=== PATIENT | male | born 1980 | race Caucasian/White ===

== ENCOUNTER 2022-08-25 18:32 | Emergency (ER) | payer MEDICAID, SELFPAY ==
[2022-08-25 18:34] VITALS: BP 115/93; PULSE 87; RESP 19; TEMP 36.6; O2SAT 99; BMI 28.8
--- NOTE | 2022-08-25 20:04 | EDS_ITS ---
HPI HPI - GI History of Present Illness Chief Complaint: Abd Pain Narrative Narrative: 41-year-old male with history of IBS and cannabinoid hyperemesis syndrome presenting with nausea, vomiting, epigastric pain. He states this started about 3 in the morning this morning. He had nausea and vomiting all day. He states he has tried using hot showers and had the hot showers epigastric region which was helping him however he ran out of hot water and went to his grandmother's house to use her shower. He also states that he forgot his capsaicin cream which usually rubs on his epigastric region when he has nausea and vomiting. Denies fevers. Denies constipation diarrhea. PFSH PFSH Medical History no medical history Home Medications ondansetron 4 mg disintegrating tablet 4 mg PO Q8H PRN PRN Nausea #20 tabs 08/25/22 [Rx Last Taken Unknown] Allergy/AdvReac Type Severity Reaction Status Date / Time No Known Allergies Allergy Verified 08/25/22 18:34 Social History Smoking Status: Unknown if ever smoked ROS ROS ED Constitutional Constitutional ED: Denies chills, fever(s) or sweats Eyes Eyes: Denies blurry vision or change in vision ENT ENT ED: Denies ear pain or sore throat Cardiovascular Cardiovascular: Denies chest pain, palpitations or racing heartbeat Respiratory/Chest Respiratory/Chest: Denies cough, dyspnea or sputum Gastrointestinal Gastrointestinal: Reports abdominal pain, nausea and vomiting; Denies constipation or diarrhea Genitourinary Genitourinary ED: Denies dysuria, hematuria or urinary frequency Musculoskeletal Musculoskeletal: Denies arthralgias, myalgias or neck pain Integumentary Denies abscess, Abrasions or rash Neurologic Neurologic: Denies headache(s), paresthesias or weakness Psychiatric Psychiatric: Denies anxiety, depression, suicidal ideation or suicidal thoughts Endocrine Endocrinology: Denies polydipsia or polyuria EXAM Physical Exam Const Vital Signs: 08/25/22 18:34 08/25/22 20:33 08/25/22 21:54 Temperature 97.9 F Temperature Source Temporal Pulse Rate 87 65 67 Respiratory Rate 19 H 15 15 Blood Pressure 115/93 H 140/66 H 101/56 L Blood Pressure Mean 100 90 71 Pulse Ox 99 99 99 Oxygen Delivery Method Room Air Room Air Room Air 08/25/22 22:24 Temperature Temperature Source Pulse Rate 75 Respiratory Rate 15 Blood Pressure 105/88 H Blood Pressure Mean 93 Pulse Ox 99 Oxygen Delivery Method Room Air Positive well nourished and obese General Appearance ED: Negative for pallor Nutritional Appearance: obese HEENT Reports dry mucous membranes normocephalic Mouth ED: Yes dry mucous membranes Mouth: dry mucous membranes Eyes PERRL and EOMs intact bilaterally General Eye ED: Negative for pale conjunctiva or scleral icterus Resp normal respiratory effort Effort and Inspection: Negative for respiratory distress Cardio regular rate and regular rhythm GI GI Narrative: Diffuse tenderness of the abdomen without rebound or guarding. There is more tenderness in the epigastric region. Negative Rothman sign. Neuro CN's II-XII intact bilaterally Sensorium / Orientation: alert Psych mental status grossly normal Skin General Skin Exam: Negative for jaundice or pallor MDM MDM MDM Narrative Medical decision making narrative: Patient presenting with nausea, vomiting, abdominal pain. Differential includes but is not limited to GERD, gastritis, peptic ulcer disease, acute cholecystitis, acute cholelithiasis, appendicitis, diverticulitis, pancreatitis, small bowel obstruction, food poisoning, cannabinoid hyperemesis syndrome, cyclic vomiting syndrome. CBC to assess white blood cell count, hemoglobin, platelets, differential. CMP to assess liver function, renal function, glucose, anion gap, electrolytes. Urinalysis to assess for UTI. Patient ordered capsaicin cream to rub on his epigastrium. He was ordered morphine and Zofran as well as a liter of normal saline. CBC showed a normal white blood cell count 10.4. Hemoglobin 14, hematocrit 41.4, platelets 255. Renal function and electrolytes within normal limits. LFTs are normal. Lipase is negative. Urinalysis negative for infection. Patient still having pain and nausea after treatment and was given Reglan and 4 mg of morphine. He was taken to CT and a CT abdomen pelvis was negative for acute findings. It does show hepatosplenomegaly. On reevaluation at 11:30 PM the patient is resting comfortably and asleep. I counseled him on his negative work-up and he is stable for discharge home. I believe his symptoms are most consistent with a cannabinoid hyperemesis syndrome. He will be given Zofran and his prescription will be filled here at the hospital for going home. Return precautions discussed. Impression: 1. Cannabinoid hyperemesis syndrome 2. Abdominal pain Lab Data Labs: Laboratory Results - last 24 hr 08/25/22 08/25/22 08/25/22 19:20 19:20 20:50 WBC Cancelled 10.4 Corrected WBC Cancelled RBC Cancelled 4.70 Hgb Cancelled 14.0 Hct Cancelled 41.4 MCV Cancelled 88.1 MCH Cancelled 29.8 MCHC Cancelled 33.8 RDW Std Deviation Cancelled 39.6 RDW Coeff of Roldan Cancelled 12.2 Plt Count Cancelled 255 MPV Cancelled 8.8 Immature Gran % (Auto) Cancelled 0.400 Neut % (Auto) Cancelled 92.0 H Lymph % (Auto) Cancelled 6.0 L [place] % (Auto) Cancelled 1.5 Eos % (Auto) Cancelled 0.0 Baso % (Auto) Cancelled 0.1 Absolute Neuts (auto) Cancelled 9.6 H Absolute Lymphs (auto) Cancelled 0.63 L Total Counted Cancelled Neutrophils % (Manual) Cancelled Band Neutrophils % Cancelled Lymphocytes % (Manual) Cancelled Monocytes % (Manual) Cancelled Eosinophils % (Manual) Cancelled Basophils % (Manual) Cancelled Metamyelocytes % Cancelled Myelocytes % Cancelled Promyelocytes % Cancelled Blast Cells % Cancelled Plasma Cell % (Manual) Cancelled Other Cells % Cancelled Nucleated RBC % Cancelled 0 Nucleated RBCs/100 WBC Cancelled Differential Comment Cancelled Diff Path Review Cancelled Hypersegmented Neuts Cancelled Atypical Lymphocytes Cancelled Reactive Lymphocytes Cancelled Smudge Cells Cancelled Toxic Granulation Cancelled Toxic Vacuolation Cancelled Dohle Bodies Cancelled Aliya Rods Cancelled Platelet Estimate Cancelled Plt Morphology Comment Cancelled RBC Morphology Cancelled Polychromasia Cancelled Hypochromasia Cancelled Poikilocytosis Cancelled Basophilic Stippling Cancelled Anisocytosis Cancelled Microcytosis Cancelled Macrocytosis Cancelled Spherocytes Cancelled Sickle Cells Cancelled Target Cells Cancelled Tear Drop Cells Cancelled Ovalocytes Cancelled Stomatocytes Cancelled [place]ttrick Bodies Cancelled [place] Cells Cancelled Bite Cells Cancelled Crenated Cell Cancelled Acanthocytes (Spur) Cancelled Rouleaux Cancelled Schistocytes Cancelled Sodium 142 Potassium 4.0 Chloride 109 H Carbon Dioxide 25.0 Anion Gap 8 BUN 12 Creatinine 1.02 Estim Creat Clear Calc 96.42 Est GFR (MDRD) Af Amer 102 Est GFR (MDRD) Non-Af 84 BUN/Creatinine Ratio 11.8 Glucose 131 H Calcium 9.4 Total Bilirubin 0.70 AST 13 L ALT 16 Alkaline Phosphatase 76 Total Protein 7.7 Albumin 4.0 Globulin 3.7 Albumin/Globulin Ratio 1.1 Lipase 14 Urine Color Urine Clarity Urine pH Ur Specific [place] Urine Protein Urine Glucose (UA) Urine Ketones Urine Occult Blood Urine Nitrite Urine Bilirubin Urine Urobilinogen Ur Leukocyte Esterase Urine RBC Urine WBC Ur Squamous Epith Cells Urine Bacteria Urine Mucus 08/25/22 21:56 WBC Corrected WBC RBC Hgb Hct MCV MCH MCHC RDW Std Deviation RDW Coeff of Roldan Plt Count MPV Immature Gran % (Auto) Neut % (Auto) Lymph % (Auto) [place] % (Auto) Eos % (Auto) Baso % (Auto) Absolute Neuts (auto) Absolute Lymphs (auto) Total Counted Neutrophils % (Manual) Band Neutrophils % Lymphocytes % (Manual) Monocytes % (Manual) Eosinophils % (Manual) Basophils % (Manual) Metamyelocytes % Myelocytes % Promyelocytes % Blast Cells % Plasma Cell % (Manual) Other Cells % Nucleated RBC % Nucleated RBCs/100 WBC Differential Comment Diff Path Review Hypersegmented Neuts Atypical Lymphocytes Reactive Lymphocytes Smudge Cells Toxic Granulation Toxic Vacuolation Dohle Bodies Aliya Rods Platelet Estimate Plt Morphology Comment RBC Morphology Polychromasia Hypochromasia Poikilocytosis Basophilic Stippling Anisocytosis Microcytosis Macrocytosis Spherocytes Sickle Cells Target Cells Tear Drop Cells Ovalocytes Stomatocytes Irizarry-Ettrick Bodies Shelley Cells Bite Cells Crenated Cell Acanthocytes (Spur) Rouleaux Schistocytes Sodium Potassium Chloride Carbon Dioxide Anion Gap BUN Creatinine Estim Creat Clear Calc Est GFR (MDRD) Af Amer Est GFR (MDRD) Non-Af BUN/Creatinine Ratio Glucose Calcium Total Bilirubin AST ALT Alkaline Phosphatase Total Protein Albumin Globulin Albumin/Globulin Ratio Lipase Urine Color Yellow Urine Clarity Clear Urine pH 6.5 Ur Specific [place] 1.015 Urine Protein 30 H Urine Glucose (UA) Normal Urine Ketones 50 H Urine Occult Blood 10 H Urine Nitrite Negative Urine Bilirubin Negative Urine Urobilinogen 1 H Ur Leukocyte Esterase 25 H Urine RBC 0-5 SEEN Urine WBC 0-5 SEEN Ur Squamous Epith Cells 0 SEEN Urine Bacteria 0 SEEN Urine Mucus 0 SEEN Radiography Diagnostic Testing: Clinical Impression(s) from Imaging Studies Abdomen/Pelvis CT 08/25/22 22:01 IMPRESSION: 1. Sigmoid diverticulosis without acute inflammatory change. 2. Mild hepatosplenomegaly without mass. 3. Otherwise normal CT of the abdomen and pelvis Electronically Signed: Otis Pierson DO at 23:20 EDT Reading Location ID and State: [address] [place] [address] Tel [phone], Service support , Discharge Plan Triage Chief Complaint: Abd Pain ED Provider: Jackson Gomes Dx/Rx/DC Orders Instructions: Cannabinoid Hyperemesis Syndrome, ED Abdominal Pain Unkn Cause Male... Prescriptions: New ondansetron 4 mg tablet,disintegrating 4 mg PO Q8H PRN PRN (Reason: Nausea) Qty: 20 0RF Primary Care Provider: Gilberto Cormier Referrals: Gilberto Cormier DO [Primary Care Provider] - Disposition Disposition: Home, Self Care
[2022-08-25] MEDS: Ondansetron 4 MG/2 ML Vial IV (20:15)
[2022-08-25] MEDS: Morphine 4 MG/ML Syringe IV ×2 (20:15→22:21)
[2022-08-25] MEDS: 0.9% Normal Saline 1,000 ML 1000 ML IV (20:18)
[2022-08-25 20:33] VITALS: BP 140/66; PULSE 65; RESP 15; O2SAT 99
[2022-08-25 20:34] LABS: ALB/GLOB Ratio 1.1 RATIO (0.9-2.4); AST(SGOT) 13 U/L (15-37); Alanine Aminotransfer ALT/SGPT 16 U/L (16-61); Alkaline Phosphatase 76 U/L (45-117); Anion Gap 8 (5-15); BUN 12 mg/dL (7-18); BUN/Creat Ratio 11.8 RATIO (10-20); Calcium,Total 9.4 mg/dL (8.5-10.1); Chloride 109 mmol/L (98-107); Creatinine, Serum 1.02 mg/dL (0.70-1.30); EST Glomerular Filtration Rate 84 mL/min (>60); Est Glom Filt Rate - Afr Amer 102 mL/min (>60); Estimated Creatinine Clearance 96.42 ml/min; Globulin 3.7 g/dL (2.2-4.2); Glucose 131 mg/dL (74-106); Lipase 14 U/L (13-75); Protein, Total 7.7 g/dL (6.4-8.2); Sodium Level 142 mmol/L (136-145)
[2022-08-25] MEDS: Capsaicin 0.025% 1 APPLIC Tube TOPICAL (20:39)
[2022-08-25 20:53] LABS: Absolute Lymphocyte Count 0.63 X10^3/uL (0.83-4.51); Absolute Neutrophil Count 9.6 X10^3/uL (2.0-7.7); Basophil# 0.01 X10^3/uL; Basophil% 0.1 % (0-1); Hematocrit 41.4 % (40-54); Lymphocyte # 0.63 X10^3/ul (0.83-4.51); Mean Corp Hgb Conc 33.8 g/dL (32-36); Mean Corpuscular Hgb 29.8 pg (27.0-32.0); Mean Corpuscular Volume 88.1 fL (80-94); Mean Platelet Vol. 8.8 fl (6.2-12.0); Monocyte# 0.16 X10^3/uL; Monocyte% 1.5 % (0-10); NRBC Flagged by Analyzer 0 % (0-5); Neutrophil # 9.59 X10^3/uL (2.7-7.7); Platelet Count 255 K/mm3 (150-450); RBC Distribution Width CV 12.2 % (11.6-14.6); RBC Distribution Width SD 39.6 fl (35.1-43.9); White Blood Count 10.4 K/mm3 (4.4-11.0)
[2022-08-25 21:54] VITALS: BP 101/56; PULSE 67; RESP 15; O2SAT 99
--- NOTE | 2022-08-25 22:01 | CT_ITS ---
STUDY: CT ABDOMEN AND PELVIS WITH CONTRAST REASON FOR EXAM: Male, 41 years old. Epigastric pain. Nausea and vomiting. Cannabinoids hyperemesis syndrome. Diverticulitis in RIBS. RADIATION DOSAGE (If Supplied By Facility): CTDIvol = ( 13.44 ) mGy, DLP = ( 1137.53 ) mGycm TECHNIQUE: IV 100mL Isovue-300 was administered. Transaxial images were obtained from the dome of the diaphragm to the symphysis pubis. Multiplanar coronal and sagittal images were reformatted. Individualized Dose Optimization Techniques Were Used For This CT. COMPARISON: FINDINGS: The visualized lung bases are unremarkable. The visualized portions of the heart are within normal limits. Mildly enlarged liver without mass. Normal gallbladder and extrahepatic biliary system. Mild splenomegaly. Normal pancreas. Normal bilateral adrenal glands. Normal visualized stomach. Normal small intestine. There is descending and sigmoid diverticulosis without acute inflammatory change. The proximal colon is grossly normal. The appendix is visualized and appears normal. Normal abdominal aorta. No retroperitoneal adenopathy. Normal right kidney. Normal left kidney. Normal visualized ureters. Normal urinary bladder. Normal prostate. No pelvic lymphadenopathy. No free air or free fluid is seen within the peritoneal cavity. Normal abdominal wall. Normal osseous structures. CT/Abdomen/Pelvis W IV Cont ONLY IMPRESSION: 1. Sigmoid diverticulosis without acute inflammatory change. 2. Mild hepatosplenomegaly without mass. 3. Otherwise normal CT of the abdomen and pelvis Electronically Signed: Otis Pierson DO at 23:20 EDT ,
[2022-08-25 22:03] LABS: Bacteria 0 SEEN /hpf (None Seen); Mucous, Urine 0 SEEN /hpf (<or=2+); Squamous Epithelial Cells - UA 0 SEEN /hpf (0-5)
[2022-08-25] MEDS: Metoclopramide 10 MG/2 ML Vial IV (22:19)
[2022-08-25 22:20] LABS: Color, Urine Yellow (Yellow); Glucose, Dipstick Normal (Normal); Ketone-Dipstick 50 mg/dl (Negative); Leukocyte Esterase-Dipstick 25 /ul (Negative); Nitrite-Dipstick Negative (Negative); Occult Blood-Urine 10 /ul (Negative); Protein-Dipstick 30 mg/dl (Negative); Specific Gravity, Urine 1.015 (1.002-1.030); Urine Bilirubin Dipstick Negative (Negative); Urine Clarity Clear (Clear); Urine Urobilinogen 1 mg/dl (Normal); Urine pH 6.5 (5.0 - 8.0)
[2022-08-25 22:24] VITALS: BP 105/88; PULSE 75; RESP 15; O2SAT 99
[2022-08-25 22:27] LABS: Red Blood Cells-Urine 0-5 SEEN /hpf (0-5); White Blood Cells 0-5 SEEN /hpf (0-5)
[2022-08-25 23:47] VITALS: BP 108/58; PULSE 65; RESP 15; O2SAT 98
== END 2022-08-26 00:25 | disposition home or self-care (01) ==
PROVIDERS: Emergency Provider Student in an Organized Health Care Education/Training Program; PCP Family Medicine; Visit Provider Student in an Organized Health Care Education/Training Program
DX: F12.90 Cannabis use, unspecified, uncomplicated (principal); R11.2 Nausea with vomiting, unspecified; R10.9 Unspecified abdominal pain
CPT/HCPCS: 74177; 80053; 81001; 83690; 85025; 96361; 96374; 96375; 96376; 99284; J7030; Q9967; A4216; J2405

== ENCOUNTER 2022-09-06 13:52 | Emergency (ER) | payer MEDICAID, SELFPAY ==
[2022-09-06 13:53] VITALS: BP 160/99; PULSE 66; RESP 18; TEMP 36.1; O2SAT 98
[2022-09-06 14:50] VITALS: BMI 29.7
[2022-09-06 15:00] LABS: Absolute Lymphocyte Count 0.73 X10^3/uL (0.83-4.51); Absolute Neutrophil Count 9.1 X10^3/uL (2.0-7.7); Basophil# 0.01 X10^3/uL; Basophil% 0.1 % (0-1); Eosinophil# 0.01 X10^3/uL; Eosinophils% 0.1 % (0-5); Hematocrit 45.5 % (40-54); Hemoglobin 15.7 g/dL (13.0-16.5); Lymphocyte # 0.73 X10^3/ul (0.83-4.51); Lymphocyte % 7.2 % (19-41); Mean Corp Hgb Conc 34.5 g/dL (32-36); Mean Corpuscular Hgb 30.1 pg (27.0-32.0); Mean Corpuscular Volume 87.2 fL (80-94); Mean Platelet Vol. 9.3 fl (6.2-12.0); Monocyte# 0.27 X10^3/uL; Monocyte% 2.7 % (0-10); NRBC Flagged by Analyzer 0 % (0-5); Neutrophil # 9.13 X10^3/uL (2.7-7.7); Neutrophil % 89.6 % (47-70); Platelet Count 258 K/mm3 (150-450); Red Blood Count 5.22 M/mm3 (4.6-6.2); White Blood Count 10.2 K/mm3 (4.4-11.0)
[2022-09-06 15:20] LABS: ALB/GLOB Ratio 1.1 RATIO (0.9-2.4); AST(SGOT) 36 U/L (15-37); Alanine Aminotransfer ALT/SGPT 13 U/L (16-61); Albumin, Serum 3.1 g/dL (3.2-5.0); Alkaline Phosphatase 57 U/L (45-117); Anion Gap 5 (5-15); BUN 9 mg/dL (7-18); BUN/Creat Ratio 12.3 RATIO (10-20); Calcium,Total 7.6 mg/dL (8.5-10.1); Chloride 117 mmol/L (98-107); Creatinine, Serum 0.73 mg/dL (0.70-1.30); EST Glomerular Filtration Rate 124 mL/min (>60); Est Glom Filt Rate - Afr Amer 150 mL/min (>60); Estimated Creatinine Clearance 134.72 ml/min; Globulin 2.9 g/dL (2.2-4.2); Glucose 104 mg/dL (74-106); Lipase 14 U/L (13-75); Potassium 4.8 mmol/L (3.5-5.1); Sodium Level 142 mmol/L (136-145)
[2022-09-06] MEDS: LORazepam 2 MG/ML Syringe 0.5 MG IV (15:21)
[2022-09-06] MEDS: Ondansetron 4 MG/2 ML Vial IV (15:21)
[2022-09-06] MEDS: Capsaicin 0.025% 1 APPLIC Tube TOPICAL (15:28)
[2022-09-06] MEDS: Famotidine 200 MG/20 ML MDV 20 MG in 0.9% Normal Saline (Pres. free 8 ML 300 MG IV (15:28)
[2022-09-06] MEDS: Mag Hydrox/Al Hydrox/Simeth 30 ML UDC PO (16:02)
[2022-09-06] MEDS: Ketorolac 15 MG/ML Vial IV (16:02)
--- NOTE | 2022-09-06 16:23 | EDS_ITS ---
HPI HPI - GI History of Present Illness Chief Complaint: Abd Pain Narrative Narrative: 41-year-old male with history of cyclic vomiting syndrome and cannabinoid hyperemesis syndrome presenting with nausea, vomiting, epigastric pain. He states that he had a IBS flareup today so he decided to smoke marijuana which caused him to start vomiting. When asked what the cyclic vomiting flare was composed of he could not tell me. He states is not diarrhea and its not constipation. Has not had a fever. He does complain of epigastric pain where he gets pain typically when he has a cyclic vomiting flare/cannabinoid hyperemesis flare. Patient previously seen at [facility] for the first time on the second of this month. At this point he was given capsaicin cream to the area on his stomach. 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 [facility] Medical History Cannabinoid hyperemesis syndrome IBS (irritable bowel syndrome) Home Medications ondansetron 4 mg disintegrating tablet 4 mg PO Q8H PRN PRN Nausea #20 tabs 08/25/22 [Rx Last Taken Unknown] Allergy/AdvReac Type Severity Reaction Status Date / Time No Known Allergies Allergy Verified 09/06/22 13:55 Social History Smoking Status: Never smoker ROS ROS ED Constitutional Constitutional ED: Denies chills, fever(s) or sweats Eyes Eyes: Denies blurry vision or change in vision ENT ENT ED: Denies ear pain or sore throat Cardiovascular Cardiovascular: Denies chest pain, palpitations or racing heartbeat Respiratory/Chest Respiratory/Chest: Denies cough, dyspnea or sputum Gastrointestinal Gastrointestinal: Reports abdominal pain, nausea and vomiting; Denies constipation or diarrhea Genitourinary Genitourinary ED: Denies dysuria, hematuria or urinary frequency Musculoskeletal Musculoskeletal: Denies arthralgias, myalgias or neck pain Integumentary Denies abscess, Abrasions or rash Neurologic Neurologic: Denies headache(s), paresthesias or weakness Psychiatric Psychiatric: Denies anxiety, depression, suicidal ideation or suicidal thoughts Endocrine Endocrinology: Denies polydipsia or polyuria EXAM Physical Exam Const Vital Signs: 09/06/22 13:53 09/06/22 16:28 Temperature 97 F L Temperature Source Temporal Pulse Rate 66 Respiratory Rate 18 Blood Pressure 160/99 H 139/86 H Blood Pressure Mean 119 103 Pulse Ox 98 Oxygen Delivery Method Room Air Positive well nourished General Appearance ED: NAD; Negative for pallor HEENT Reports moist mucous membranes normocephalic and atraumatic Eyes PERRL and EOMs intact bilaterally General Eye ED: Negative for pale conjunctiva Resp normal respiratory effort Cardio regular rate and regular rhythm GI Palpation: tender epigastric Neuro CN's II-XII intact bilaterally Sensorium / Orientation: alert Motor Exam: strength 5/5 throughout Psych mental status grossly normal and thought process normal Skin General Skin Exam: Negative for jaundice or pallor MDM MDM MDM Narrative Medical decision making narrative: Patient presenting with epigastric pain and a known history of cyclic vomiting syndrome as well as an avoid hyperemesis syndrome. He states today he had a flareup of his IBS and decided smoke marijuana which caused him to start vomiting. He cannot describe to me what a flareup of IBS is. Patient has been here once this month for cyclic vomiting. I did review the medical record in [facility], and he is apparently well-known at [facility] for cyclic vomiting. It does appear that on his last visit when I saw him in the ER he had spent the whole morning at [facility] receiving narcotics and antiemetics and then came to the emergency room here after he left. He is requesting narcotics for now I am going to treat him as cyclic vomiting. He is also given Toradol and a GI cocktail, as well as capsaicin cream to the abdomen, Pepcid, Ativan, Thorazine and Benadryl. I do not feel narcotics are appropriate. I will obtain a CBC to assess white blood cell count, hemoglobin, platelets, differential. CMP to assess liver function, renal glucose, anion gap. Lipase to assess for pancreatitis. It appears that he has had several CT scans of his abdomen and pelvis from [facility] in the past has already had one here which was negative. Patient CBC shows a normal white blood cell count at 10.2. Hemoglobin stable at 15.7, hematocrit 45.5, platelets 258 renal function and electrolytes within normal limits. LFTs and lipase are normal. Patient has normal vital signs. Will reevaluate. On reevaluation at 5:10 PM the patient is sleeping comfortably. His mother is at the bedside and we agreed that it appeared to be working however when the patient opens his eyes he asked for narcotics. I explained to him that his blood work-up was normal and I do not believe he needs any narcotics. I will let the rest of his medication finish. I will write prescriptions for home-going. Impression: 1. Cyclic vomiting syndrome 2. Cannabinoid hyperemesis syndrome 3. Abdominal pain Lab Data Attestation: I reviewed the patient's lab results. Labs: Laboratory Results - last 24 hr 09/06/22 09/06/22 14:47 14:47 WBC 10.2 RBC 5.22 Hgb 15.7 Hct 45.5 MCV 87.2 MCH 30.1 MCHC 34.5 RDW Std Deviation 40.0 RDW Coeff of [place]oldan 13.0 Plt Count 258 MPV 9.3 Immature Gran % (Auto) 0.300 Neut % (Auto) 89.6 H Lymph % (Auto) 7.2 L [place] % (Auto) 2.7 Eos % (Auto) 0.1 Baso % (Auto) 0.1 Absolute Neuts (auto) 9.1 H Absolute Lymphs (auto) 0.73 L Nucleated RBC % 0 Sodium 142 Potassium 4.8 Chloride 117 H Carbon Dioxide 20.0 L Anion Gap 5 BUN 9 Creatinine 0.73 Estim Creat Clear Calc 134.72 Est GFR (MDRD) Af Amer 150 Est GFR (MDRD) Non-Af 124 BUN/Creatinine Ratio 12.3 Glucose 104 Calcium 7.6 L Total Bilirubin 0.80 AST 36 ALT 13 L Alkaline Phosphatase 57 Total Protein 6.0 L Albumin 3.1 L Globulin 2.9 Albumin/Globulin Ratio 1.1 Lipase 14 Discharge Plan Triage Chief Complaint: Abd Pain ED Provider: Jackson Gomes Dx/Rx/DC Orders Prescriptions: No Action ondansetron 4 mg tablet,disintegrating 4 mg PO Q8H PRN PRN (Reason: Nausea) Qty: 20 0RF Primary Care Provider: Gilberto Cormier Referrals: Gilberto Cormier DO [Primary Care Provider] -
[2022-09-06 16:28] VITALS: BP 139/86
== END 2022-09-06 17:57 | disposition home or self-care (01) ==
PROVIDERS: Emergency Provider Student in an Organized Health Care Education/Training Program; PCP Family Medicine; Visit Provider Student in an Organized Health Care Education/Training Program
DX: R10.13 Epigastric pain (principal); F12.188 Cannabis abuse with other cannabis-induced disorder; R11.15 Cyclical vomiting syndrome unrelated to migraine
CPT/HCPCS: 80053; 83690; 85025; 96374; 96375; 99285; J7050; A4216; J2405; J3490